=== PATIENT | male | born 1985 | race Caucasian/White ===

== ENCOUNTER 2018-03-25 18:33 | Emergency (ER) | payer OTHER, MEDICAID, SELFPAY ==
[2018-03-25 18:43] VITALS: BP 136/65; PULSE 108; RESP 15; TEMP 37.1; O2SAT 95; BMI 18.8
--- NOTE | 2018-03-25 18:54 | PC.NURSE ---
Red raised rash;
--- NOTE | 2018-03-25 19:13 | ED_ITS ---
HPI - Skin/Abscess/Foreign Bdy <Harini Jc PA-C - Last Filed: 03/25/18 22:27> General Chief complaint: Skin/Abscess/Foreign Body Stated complaint: rash on neck and abdomen Time Seen by Provider: 03/25/18 18:44 Source: patient Mode of arrival: ambulatory Limitations: no limitations History of Present Illness HPI narrative: This 33-year-old male comes in today mainly due to rash. He states that he did not notice this, but his girlfriend noticed it last night and others noticed at work today. He has not noted it spreading. Has not been itchy or painful. He states that he poked his left tonsil accidentally yesterday with his toothbrush and it was bleeding. He saw his PCP who thought tonsil was enlarged due to irritation. Today, he has had sore throat, nasal congestion and drainage and some mild cough that he thinks is typical of his colds. He denies chills or sweats or known fevers. He denies dyspnea or wheeze. He denies any new aches or neck pain. He denies any recent travel or known exposures though his daughter has had some congestion. He denies any new lotions, shaving cream, soaps, other new products used prior to rash. Related Data Previous Rx's Medication Instructions Recorded azithromycin 250 mg PO DAILY #4 tab 03/25/18 Allergies Allergy/AdvReac Type Severity Reaction Status Date / Time Penicillins Allergy Verified 03/25/18 18:43 Review of Systems <Harini Jc PA-C - Last Filed: 03/25/18 22:27> Review of Systems All systems reviewed & are unremarkable except as noted in HPI and below Exam <Harini Jc PA-C - Last Filed: 03/25/18 22:27> Narrative Exam Narrative: GENERAL APPEARANCE: Patient sitting comfortably, in no distress. HEAD: No sinus TTP. EYES: PERRL, EOMI. EARS: Normal auditory canals, TMS intact with normal light reflexes. ORAL CAVITY: Normal oropharynx. THROAT: Erythematous with left tonsillar enlargement and 1 patch of exudate NECK/THYROID: Neck supple, full range of motion, shotty cervical lymphadenopathy. LUNGS: Clear to auscultation bilaterally, no cough on exam. HEART: RRR without murmur, nl S1, S2, no S3 or S4. DERMATOLOGIC: [place], maculopapular scarletinaform rash noted on the posterior neck, back, and chest and abdomen. Rash blanches with touch. None on the extremities or face Initial Vital Signs Initial Vital Signs: Vital Signs Temperature 98.8 F 03/25/18 18:43 Pulse Rate 108 H 03/25/18 18:43 Respiratory Rate 15 03/25/18 18:43 Blood Pressure 136/65 03/25/18 18:43 Pulse Oximetry 95 03/25/18 18:43 <DO Sylvia Murillo Last Filed: 03/26/18 04:18> Initial Vital Signs Initial Vital Signs: Vital Signs Temperature 98.8 F 03/25/18 18:43 Pulse Rate 108 H 03/25/18 18:43 Respiratory Rate 15 03/25/18 18:43 Blood Pressure 136/65 03/25/18 18:43 Pulse Oximetry 95 03/25/18 18:43 Course <Harini Jc PA-C - Last Filed: 03/25/18 22:27> Orders Ordered: Discontinued Medications Azithromycin (Zithromax) 500 mg PO NOW ONE Stop: 03/25/18 20:04 Last Admin: 03/25/18 20:05 Dose: 500 mg Vital Signs - 8 hr 03/25/18 18:43 03/25/18 20:14 Temperature 98.8 F 98.8 F Pulse Rate 108 H 98 H Respiratory Rate 15 17 Blood Pressure 136/65 113/65 Pulse Oximetry 95 97 <DO Sylvia Murillo Last Filed: 03/26/18 04:18> Orders Ordered: Discontinued Medications Azithromycin (Zithromax) 500 mg PO NOW ONE Stop: 03/25/18 20:04 Last Admin: 03/25/18 20:05 Dose: 500 mg Vital Signs - 8 hr 03/25/18 18:43 03/25/18 20:14 Temperature 98.8 F 98.8 F Pulse Rate 108 H 98 H Respiratory Rate 15 17 Blood Pressure 136/65 113/65 Pulse Oximetry 95 97 MDM - Skin/Abscess/Foreign Bdy <ADIN Hu Last Filed: 03/25/18 22:27> Lab Data Attestation: I reviewed the patient's lab results. Point of Care Testing Rapid Strep A Negative <Ramu Cunningham DO - Last Filed: 03/26/18 04:18> Lab Data Point of Care Testing Rapid Strep A Negative Discharge Plan Departure Patient Disposition: Home Clinical Impression: Scarlet fever Discharge Date/Time: 03/25/18 20:15 Interventions: ED Discharge Assessment Last Done: 03/25/18 20:14 Instructions: DI for Scarlet Fever Activity Restrictions/Additional Instructions: We have started treatment for strep throat due to your sore throat, swollen glands, and new rash along with this which looks like scarlet fever. This rash is commonly associated with strep throat, though other viruses can sometimes cause similar rashes. 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 Take [id number] ibuprofen or Aleve as needed for sore throat, and you can use lozenges as needed. Return as we talked about if you have acutely worsening symptoms such as difficulty swallowing or breathing, or high fever. Please remain off of work for the next 48 hr while you start the antibiotic, and you can return for your evening shift if you are feeling better. You should avoid working if you are coughing as secretions could be contagious. You should follow up with your PCP if you are not feeling better next week as you may need further treatment or referral Prescriptions: New azithromycin 250 mg tablet 250 mg PO DAILY Qty: 4 RF: 0 Referrals: Lionel Shelton [Other] <Ramu Cunningham DO - Last Filed: 03/26/18 04:18> Cosign ED Attending Nico Attestation: I was immediately available in the department for consultation. Documentation has been reviewed. I agree with assessment and plan.
[2018-03-25] MEDS: AZITHROMYCIN 250 MG TABLET 500 MG PO (20:05)
[2018-03-25 20:14] VITALS: BP 113/65; PULSE 98; RESP 17; TEMP 37.1; O2SAT 97
== END 2018-03-25 20:15 | disposition home or self-care (01) ==
PROVIDERS: Emergency Provider Internal Medicine
DX: A38.9 Scarlet fever, uncomplicated (principal)
CPT/HCPCS: 87880; 99282; 99283